=== PATIENT | female | born 1985 | race Caucasian/White ===

== ENCOUNTER → 2020-09-03 | Outpatient (CLI) | payer OTHER ==
[~2020-09-03] MED LIST: ANUSOL-HC30 GM RC; APAP500 PO; CLONAZEPAM 1 MG1 M1 PO; DERMOPLAST SPRA56 ML; IBUPROFEN 800800 M1 PO; LANOLIN56 GM; PRENATAL PO; PROZAC 10 MG CA10 MG PO; TUCKS MEDICATE1 EAC1; ZOLOFT 50 MG TA50 M1 PO
== END ==
LOC: LAB 08:28
PROVIDERS: ATTEND Anesthesiology
DX: Z01.812 Encounter for preprocedural laboratory examination (principal); Z20.822 Contact with and (suspected) exposure to COVID-19